=== PATIENT | female | born 1955 | race Caucasian/White ===

== ENCOUNTER 2019-07-13 17:28 | Emergency (ER) | payer BC ==
[~2019-07-13] VITALS: Ht 167.6 cm; Wt 78.9 kg
--- NOTE | 2019-07-13 18:16 | EKG ---
[facility] [address] [facility] [place], [place] [address] Signed Normal sinus rhythm Normal ECG No previous ECGs available Confirmed by SUE CLINE MD ([id number]) on 07/13/2019 6:16:12 PM Electronically Signed By: SUE CLINE MD 07/13/19 1816 PATIENT NAME: DANIELLA MOSLEY Electrocardiogram DATE OF : 57 PHYSICIAN: SUE CLINE MD REPORT #: [id number] REPORT IS CONFIDENTIAL AND NOT TO BE RELEASED WITHOUT AUTHORIZATION
== END 2019-07-13 19:44 | disposition home or self-care (01) ==
LOC: ED 17:28
DX: R68.84 Jaw pain (principal); M79.604 Pain in right leg; M79.601 Pain in right arm
CPT/HCPCS: 93005; 93010; 99283-25

== ENCOUNTER 2019-11-23 16:24 | Emergency (ER) | payer BC ==
[~2019-11-23] VITALS: Ht 167.6 cm; Wt 78.9 kg
== END 2019-11-23 19:00 | disposition left against medical advice (07) ==
LOC: ED 16:24
DX: Z53.21 Procedure and treatment not carried out due to patient leaving prior to being seen by health care provider (principal)

== ENCOUNTER 2019-11-24 07:29 | Emergency (ER) | payer BC ==
[~2019-11-24] VITALS: Ht 167.6 cm; Wt 78.9 kg
--- OUTSIDE RECORDS SUMMARY | 2019-11-24 07:32 | XMS ---
PreManage Notification: DANIELLA MOSLEY Security Director Of Land Acquisition Events No recent Security Events currently on file CRITERIA MET - [facility] - 2 Visits in 30 Days CARE PROVIDERS VERONICA FROST Physician Associate Dean Of Women Current PHONE: Unknown Scarlet has no Care Guidelines for this patient. EVasquez VISIT COUNT (12 MO.) 3 [facility] TOTAL 3 NOTE: Visits indicate total known visits. ED/UCC VISIT TRACKING (12 MO.) 11/24/2019 07:30 [facility] [place] TYPE: Emergency COMPLAINT: - EYE PAIN, POSSIBLE INJ 11/23/2019 16:24 [facility] [place] TYPE: Emergency COMPLAINT: - EYE PAIN,NON INJ, LEFT WITHOUT BEING SEEN 07/13/2019 17:30 [facility] [place] TYPE: Emergency COMPLAINT: - POSSIBLE HEART ATTACK DIAGNOSES: - Pain in right leg - Jaw pain - Pain in right arm INPATIENT VISIT TRACKING (12 MO.) No inpatient visits to display in this time frame [email or web address]
== END 2019-11-24 08:15 | disposition home or self-care (01) ==
LOC: ED 07:29
DX: H15.102 Unspecified episcleritis, left eye (principal); Z87.891 Personal history of nicotine dependence
CPT/HCPCS: 99283

== ENCOUNTER 2021-09-13 19:23 | Emergency (ER) | payer MEDICARE, OTHER ==
[~2021-09-13] VITALS: Ht 167.6 cm; Wt 76.9 kg
[~2021-09-13 19:23] MED LIST: ACETAMINOPHEN500 MG PO; FLONASE ALLERG9.9 ML; IBUPROFEN600 MG PO; OXYCODON-ACETA1 EAC2 PO; PRILOSEC OTC20 MG PO
== END 2021-09-13 20:20 | disposition home or self-care (01) ==
LOC: ED 19:23
DX: M79.605 Pain in left leg (principal); Z90.49 Acquired absence of other specified parts of digestive tract; Z87.891 Personal history of nicotine dependence; Z79.899 Other long term (current) drug therapy
CPT/HCPCS: 93971; 99283-25

== ENCOUNTER 2022-04-05 11:25 | Day surgery (SDC) | payer MEDICARE, OTHER ==
[~2022-04-05] VITALS: Ht 167.6 cm; Wt 75.0 kg
--- NOTE | 2022-04-05 14:27 | NUR ---
04/05/22 1427 Yessy Schultz 1400 PT ARRIVED IN PACU SLEEPY. ABD SOFT. 1415 DR AT BEDSIDE TALKING WITH PT. 1425 SITTING UP IN BED SIPPING ON WATER. NO C/O'S.
--- NOTE | 2022-04-06 12:53 | PATH ---
[facility] [address] [facility] [place] [address] Signed SPECIMEN(S): A CECUM COLON BIOPSY SPECIMEN(S): B RECTUM SPECIMEN SOURCE: A. CECUM COLON BIOPSY B. RECTUM CLINICAL HISTORY: Diverticulosis in 2016. Post: Mild colitis FINAL PATHOLOGIC DIAGNOSIS: A. Cecum colon biopsy: - Benign colonic mucosa, negative for pathologic inflammation. - Incidental mucosal lymphoid aggregate with reactive histologic features. - Negative for epithelial atypia or dysplasia. B. Rectum, biopsy: - Benign colonic mucosa, negative for pathologic inflammation or epithelial atypia. JVR:[facility]:C2NR MICROSCOPIC EXAMINATION: Histologic sections of all submitted blocks are examined by light microscopy. These findings, together with the gross examination, support the pathologic diagnosis. GROSS DESCRIPTION: Two specimens are received in two containers labeled with "LG". A. The specimen, labeled "LG, 1," and designated on the requisition "cecum biopsy," is received in formalin and consists of three fragments of pink-brock tissue (0.4 to 0.5 cm in greatest dimension). The specimen is submitted entirely in cassette A1. B. The specimen, labeled "LG, 2," and designated on the requisition "rectum biopsy," is received in formalin and consists of two fragments of pink-brock tissue (0.3 cm in greatest dimension). The specimen is submitted entirely in cassette B1. AC (under the direct supervision of a pathologist) The Gross Description was prepared using a voice recognition system. The report was reviewed for accuracy; however, sound-alike word errors, addition and/or deletions may occur. If there is any question about this report, please contact Client Services. PATIENT NAME: DANIELLA MOSLEY PATHOLOGY DATE OF : 57 REPORT #: [id number] PHYSICIAN: GWENDOLYN SHIELDS PCP: VERONICA FROST REPORT IS CONFIDENTIAL AND NOT TO BE RELEASED WITHOUT AUTHORIZATION [facility] [address] [facility] [place] [address] Signed PERFORMING LABORATORY: The technical component was performed by [facility], [address] [place] [address] (CLIA# [id number]). Professional interpretation was performed by [facility] - [facility], [address] [place] [id number] (CLIA#: [id number]). Diagnostician: Christopher Albright MD Pathologist Electronically Signed 04/06/2022 Copies: ~ PATIENT NAME: DANIELLA MOSLEY PATHOLOGY DATE OF : 57 REPORT #: [id number] PHYSICIAN: GWENDOLYN SHIELDS PCP: VERONICA FROST REPORT IS CONFIDENTIAL AND NOT TO BE RELEASED WITHOUT AUTHORIZATION
--- NOTE | 2022-04-06 17:55 | OR ---
[facility] [address] [place], [place] [address] Signed DATE OF OPERATION: 04/05/2022 SURGEON: Lenny Keane MD PREOPERATIVE DIAGNOSIS: Episodic persistent mucoid stools without evidence of bleeding. POSTOPERATIVE DIAGNOSIS: Minimal cecal inflammation and possible rectal inflammation, otherwise normal. PROCEDURE: Total colonoscopy to cecum with biopsy of cecum and rectum. ANESTHESIA: Intravenous sedation with fentanyl 150 mcg and Versed 7 mg. INDICATION: This 67-year-old white woman is a patient of Veronica Horner, and known to me for the past having undergone cholecystectomy. She has recovered from that fully. This was performed in September 2021. She occasionally still has some episodic right upper abdominal pain, but also mucoid stool from time to time without associated bleeding. She was previously diagnosed with the eosinophilic esophagitis and has a personal history of COVID-19. She is currently symptom free, though still has some mucus per rectum from uncertain causes. She is admitted to undergo colonoscopy, understands the risks of bleeding, infection, and perforation. FINDINGS: The prep was good. Complete colonoscopy was undertaken of the cecum without question. The appendiceal orifice was normal. There was mild inflammation of the cecum, not much really but some in fact, and therefore, biopsies were obtained. The remaining colon was essentially normal except for the rectum which had a few areas of inflammation, likely reactive to the bowel prep. There was no evidence of extensive diverticular disease though there were a few I believe and no evidence at all of polyps or cancer. PROCEDURE IN DETAIL: The patient was brought to the endoscopy suite and placed in lateral decubitus position, given intravenous sedation to the point of slurred speech and nystagmus. Digital rectal examination was normal. An Olympus video colonoscope was passed in the rectum and manipulated throughout the Electronically Signed By: LENNY KEANE MD 04/06/22 1755 PATIENT NAME: DANIELLA MOSLEY OPERATIVE REPORT DATE OF : 57 REPORT #: [id number] PHYSICIAN: LENNY KEANE MD PCP: VERONICA HORNER PAC REPORT IS CONFIDENTIAL AND NOT TO BE RELEASED WITHOUT AUTHORIZATION [facility] [address] [place], [place] [address] Signed colon ultimately intubating the cecum itself. The appendiceal orifice and ileocecal valve appeared normal. Irrigation was undertaken and the scope was carefully withdrawn from the cecum and examination throughout showed no evidence of polyps or cancer. There were a few scattered diverticula, but that was not a dominant issue. The rectum appeared mildly inflamed. It was biopsied as well. The patient was taken to the recovery room in good condition after the procedure, having suffered no known complications. CONCLUSION DIAGNOSIS: Minimal cecal inflammation and possible rectal inflammation; minimal diverticular change. PLAN: We will recommend a fiber supplement such as Citrucel and high-fiber diet generally. I would recommend repeat colonoscopy in seven years, sooner if clinically indicated. She will return if she continues to have issues. She will otherwise return to the ongoing care of STEVO Medeiros. MD GINETTE West/CHAPIS /[id number] cc: Veronica Horner PA-C Copies: VERNOICA HORNER ~ Electronically Signed By: LENNY KEANE MD 04/06/22 1755 PATIENT NAME: DANIELLA MOSLEY OPERATIVE REPORT DATE OF : 57 REPORT #: [id number] PHYSICIAN: LENNY KEANE MD PCP: VERONICA HORNER REPORT IS CONFIDENTIAL AND NOT TO BE RELEASED WITHOUT AUTHORIZATION
== END 2022-04-05 14:59 | disposition home or self-care (01) ==
LOC: OPS 11:25 → DS 13:00 → OPS 13:00 → DS 04-08 13:00
PROVIDERS: ATTEND Surgery
DX: R19.5 Other fecal abnormalities (principal); K52.9 Noninfective gastroenteritis and colitis, unspecified; K57.30 Diverticulosis of large intestine without perforation or abscess without bleeding; Z86.16 Personal history of COVID-19; Z20.822 Contact with and (suspected) exposure to COVID-19
CPT/HCPCS: 88305; 99153; C9803; G0500; J2250; J3010; J7121; U0003